=== PATIENT | female | born 1980 | race Caucasian/White ===

== ENCOUNTER 2018-12-17 16:03 | Emergency (ER) | payer SELFPAY ==
[2018-12-17] MEDS: MECLIZINE 12.5 MG TAB PO (18:25)
[2018-12-17] MEDS: ONDANSETRON (ODT) 4 MG TAB ODT (18:25)
== END 2018-12-17 18:51 | disposition home or self-care (01) ==
LOC: FTE 16:03
DX: R42 Dizziness and giddiness (principal)
CPT/HCPCS: 81025; 99283